=== PATIENT | male | born 1945 | race Caucasian/White ===

== ENCOUNTER → 2017-12-31 09:59 | Outpatient (CLI) | payer MEDICARE, OTHER, SELFPAY ==
[2017-12-31 10:25] LABS: Hematocrit 50.2 % (41-53); Hemoglobin 16.9 g/dL (13.5-17.5)
[2017-12-31 11:12] LABS: Ferritin 22.6 ng/mL (17.9-464)
== END ==
PROVIDERS: Visit Provider Internal Medicine Hematology & Oncology
DX: E83.110 Hereditary hemochromatosis (principal)
CPT/HCPCS: 36415; 82728; 85014; 85018

== ENCOUNTER → 2019-01-23 08:09 | Outpatient (CLI) | payer MEDICARE, OTHER, SELFPAY ==
[2019-01-23 09:41] LABS: Ferritin 65.5 ng/mL (17.9-464)
== END ==
PROVIDERS: Visit Provider Internal Medicine Hematology & Oncology
DX: E83.110 Hereditary hemochromatosis (principal)
CPT/HCPCS: 36415; 82728

== ENCOUNTER → 2019-01-24 09:52 | Outpatient (CLI) | payer MEDICARE, OTHER, SELFPAY ==
[2019-01-24 10:27] LABS: 585 Gram Check PASS; Zero Check Sebra Scale PASS
[2019-01-24 10:28] LABS: Dizziness NO; Postdiastolic BP 82; Postsystolic BP 127; Prediastolic 91; Presystolic 140; Pulse 81; Site of phlebotomy LAC; Swelling NO
[2019-01-24 10:29] LABS: Therapeutic Phleb Comment NO COMMENT
== END ==
PROVIDERS: Visit Provider Internal Medicine Hematology & Oncology
DX: E83.110 Hereditary hemochromatosis (principal)
CPT/HCPCS: 99195